=== PATIENT | male | born 1945 | race Caucasian/White ===

== ENCOUNTER 2018-07-24 09:32 | Inpatient (IN) ==
[2018-07-24 11:01] LABS: Basophils % 0.3 % (0.0-0.8); Hematocrit 42.8 VOL% (42.0-52.0); Hemoglobin 13.6 GM/DL (14.0-18.0); Immature Granulocytes % 0.6 %; Immature Granulocytes Absolute 0.08 #; Lymphocytes # 0.1 10*3/uL (1.4-4.0); Mean Corpuscular HGB Conc 31.8 GM/DL (32-36); Mean Corpuscular Hemoglobin 30 PG (27-34); Mean Corpuscular Volume 93.2 FL (87-102); Mean Platelet Volume 10.7 FL (9.6-12.0); Monocytes # 0.2 10*3/uL (0.11-0.8); Monocytes % 1.3 % (1.7-12.7); Neutrophils # 12.3 10*3/uL (1.4-7.4); Neutrophils % 96.8 % (38.7-73.9); Platelet Count 164 T/CUMM (130-400); Red Blood Count 4.59 MC/CUMM (3.8-5.5); Red Cell Distribution Width 13.6 % (9.3-17.3); White Blood Count 12.7 T/CUMM (4-12)
[2018-07-24 11:23] LABS: Band Neutrophils 11 % (0-10); Hypochromasia 1+; Platelet Estimate Adequate; Segmented Neutrophils 88 % (50-85); Total Cells Counted 100
[2018-07-24 11:32] LABS: Calcium 8.8 MG/DL (8.5-10.1); Osmolality,Calculated 282.5 MOS/KG (273-304); Potassium 4.3 MMOL/L (3.5-5.1)
[2018-07-24] MEDS: LACTATED RINGERS 1,000 ML IV SCH (11:35)
[2018-07-24] MEDS ORDERED: GENTAMICIN 80 MG/2 ML VIAL ONE (11:57)
[2018-07-24] MEDS ORDERED: ACETAMINOPHEN 325 MG TABLET PO PRN (12:33)
[2018-07-24] MEDS ORDERED: PROMETHAZINE 25 MG/1 ML VIAL IM PRN (12:33)
[2018-07-24] MEDS ORDERED: ONDANSETRON 4 MG/2 ML VIAL IV PRN (12:33)
[2018-07-24] MEDS ORDERED: PROPOFOL 200 MG/20 ML VIAL IV ONE (12:49)
[2018-07-24] MEDS ORDERED: fentaNYL 100 MCG/2 ML VIAL ONE (12:49)
[2018-07-24] MEDS ORDERED: ePHEDrine 50 MG/ML AMP ONE (12:49)
[2018-07-24 13:16] LABS: Apearance,Urine CLOUDY (Clear); Bilirubin,Urine Negative (Negative); Blood, Urine Small mg/dL (Negative); Glucose,Urine (UA) Negative (Negative); Ketones,Urine Negative (Negative); Nitrite,Urine Positive (Negative); Protein,Urine 30 MG/DL; RBC,Urine 5 /HPF (0-4); Triple Phosphate Crystal,Urine Occasional /HPF (Few); Urine Color Amber (Yellow); Urine Specific Gravity 1.015 (1.001-1.035); Urine Urobilinogen < 2.0 EU/DL (0.2-1.0); WBC,Urine <1 /HPF (0-6)
[2018-07-24] MEDS ORDERED: GENTAMICIN INJ 480 MG in SODIUM CHLORIDE 0.9% 100 ML IV PRN (14:55)
[2018-07-24] MEDS: SODIUM CHLORIDE 0.9% 1,000 ML IV SCH (15:22)
[2018-07-24] MEDS ORDERED: GENTAMICIN INJ 320 MG in SODIUM CHLORIDE 0.9% 100 ML IV ONE (16:00)
[2018-07-25 05:47] LABS: Basophils # 0.1 10*3/uL (0.0-0.2); Basophils % 0.4 % (0.0-0.8); Eosinophils % 0.1 % (0.00-10.9); Hemoglobin 11.8 GM/DL (14.0-18.0); Immature Granulocytes Absolute 0.17 #; Lymphocytes # 0.6 10*3/uL (1.4-4.0); Lymphocytes % 3.8 % (21.2-54.2); Mean Corpuscular HGB Conc 31.1 GM/DL (32-36); Mean Corpuscular Hemoglobin 29 PG (27-34); Mean Corpuscular Volume 93.6 FL (87-102); Mean Platelet Volume 12.1 FL (9.6-12.0); Monocytes # 1.4 10*3/uL (0.11-0.8); Monocytes % 8.6 % (1.7-12.7); Neutrophils # 14.4 10*3/uL (1.4-7.4); Neutrophils % 86.1 % (38.7-73.9); Platelet Count 122 T/CUMM (130-400); Red Blood Count 4.06 MC/CUMM (3.8-5.5); Red Cell Distribution Width 13.9 % (9.3-17.3); White Blood Count 16.7 T/CUMM (4-12)
[2018-07-25 06:10] LABS: Calcium 7.9 MG/DL (8.5-10.1); Potassium 4.1 MMOL/L (3.5-5.1)
[2018-07-25 06:23] LABS: Band Neutrophils 6 % (0-10); Hypochromasia 1+; Lymphocytes 6 % (20-55); Ovalocytes Slight; Platelet Estimate Normal; Segmented Neutrophils 86 % (50-85); Total Cells Counted 100
[2018-07-25] MEDS: SODIUM CHLORIDE 0.9% 1,000 ML IV SCH ×5 (07:38→20:45)
[2018-07-25] MEDS: amLODIPine 10 MG TABLET PO SCH (08:13)
[2018-07-25] MEDS: ASPIRIN EC 81 MG TABLET PO SCH (08:13)
[2018-07-25] MEDS ORDERED: LEVOFLOXACIN 500 MG TABLET PO SCH ×2 (09:00)
[2018-07-25] MEDS ORDERED: PRAVASTATIN 40 MG TABLET PO SCH (09:00)
[2018-07-25] MEDS ORDERED: ASPIRIN EC 81 MG TABLET PO SCH (09:00)
[2018-07-25] MEDS ORDERED: amLODIPine 10 MG TABLET PO SCH (09:00)
[2018-07-25] MEDS: ENOXAPARIN 40 MG/0.4 ML SYRINGE SUBCUT SCH (12:06)
[2018-07-25] MEDS: LACTATED RINGERS 1,000 ML IV SCH (12:06)
[2018-07-25] MEDS: SIMVASTATIN 20 MG TABLET PO SCH (20:44)
[2018-07-26 05:13] LABS: Basophils # 0.1 10*3/uL (0.0-0.2); Basophils % 0.3 % (0.0-0.8); Eosinophils # 0.1 10*3/uL (0.0-0.87); Eosinophils % 0.5 % (0.00-10.9); Hematocrit 38.3 VOL% (42.0-52.0); Hemoglobin 12.2 GM/DL (14.0-18.0); Immature Granulocytes Absolute 0.15 #; Lymphocytes # 0.5 10*3/uL (1.4-4.0); Lymphocytes % 3.5 % (21.2-54.2); Mean Corpuscular HGB Conc 31.9 GM/DL (32-36); Mean Corpuscular Hemoglobin 29 PG (27-34); Mean Corpuscular Volume 92.1 FL (87-102); Mean Platelet Volume 11.6 FL (9.6-12.0); Monocytes # 1.3 10*3/uL (0.11-0.8); Monocytes % 8.6 % (1.7-12.7); Neutrophils # 12.6 10*3/uL (1.4-7.4); Neutrophils % 86.1 % (38.7-73.9); Platelet Count 108 T/CUMM (130-400); Red Blood Count 4.16 MC/CUMM (3.8-5.5); Red Cell Distribution Width 13.3 % (9.3-17.3); White Blood Count 14.7 T/CUMM (4-12)
[2018-07-26 05:40] LABS: Calcium 8.2 MG/DL (8.5-10.1); Osmolality,Calculated 273.2 MOS/KG (273-304); Potassium 4.4 MMOL/L (3.5-5.1)
[2018-07-26 05:59] LABS: Hypochromasia 1+; Lymphocytes 5 % (20-55); Ovalocytes Slight; Platelet Estimate Decreased; Segmented Neutrophils 89 % (50-85); Total Cells Counted 100
[2018-07-26] MEDS: SODIUM CHLORIDE 0.9% 1,000 ML IV SCH (08:09)
[2018-07-26] MEDS: AMOXICILLIN 875 MG TABLET PO SCH ×2 (08:45→20:56)
[2018-07-26] MEDS: DOCUSATE SODIUM 100 MG CAPSULE PO SCH ×2 (08:45→20:56)
[2018-07-26] MEDS: ENOXAPARIN 40 MG/0.4 ML SYRINGE SUBCUT SCH ×2 (08:46→08:53)
[2018-07-26] MEDS: ASPIRIN EC 81 MG TABLET PO SCH (08:46)
[2018-07-26] MEDS: amLODIPine 10 MG TABLET PO SCH (08:46)
[2018-07-26] MEDS ORDERED: GENTAMICIN INJ 480 MG in SODIUM CHLORIDE 0.9% 100 ML IV ONE (09:00)
[2018-07-26] MEDS ORDERED: VANCOMYCIN INJ 1,500 MG in SODIUM CHLORIDE 0.9% 500 ML IV ONE (09:00)
[2018-07-26] MEDS ORDERED: FUROSEMIDE 40 MG/4 ML VIAL IV ONE (10:24)
[2018-07-26] MEDS: ALBUTEROL/IPRATROPIUM 3 ML NEB RESP TX SCH ×3 (11:17→20:59)
[2018-07-26 11:23] LABS: ABG Base Excess -2.1 MMOL/L (-2.5-2.5); ABG HCO3 22.6 MMOL/L (20-26); ABG Oxygen Saturation 94.7 % (95-100); ABG PCO2 35.5 MM HG (35-48); ABG PH 7.402 (7.35-7.45); ABG PO2 70.8 MM HG (80-95); ABG TCO2 19.2 MMOL/L (23-27)
[2018-07-26] MEDS: SIMVASTATIN 20 MG TABLET PO SCH (20:56)
[2018-07-27] MEDS: ALBUTEROL/IPRATROPIUM 3 ML NEB RESP TX SCH ×4 (02:30→11:15)
[2018-07-27 04:56] LABS: Basophils % 0.3 % (0.0-0.8); Eosinophils # 0.1 10*3/uL (0.0-0.87); Eosinophils % 0.4 % (0.00-10.9); Hematocrit 36.9 VOL% (42.0-52.0); Hemoglobin 11.8 GM/DL (14.0-18.0); Immature Granulocytes % 1.3 %; Immature Granulocytes Absolute 0.16 #; Lymphocytes # 0.7 10*3/uL (1.4-4.0); Lymphocytes % 5.5 % (21.2-54.2); Mean Corpuscular Hemoglobin 29 PG (27-34); Mean Corpuscular Volume 91.1 FL (87-102); Mean Platelet Volume 11.2 FL (9.6-12.0); Monocytes # 1.2 10*3/uL (0.11-0.8); Monocytes % 9.8 % (1.7-12.7); Neutrophils # 10.3 10*3/uL (1.4-7.4); Neutrophils % 82.7 % (38.7-73.9); Platelet Count 123 T/CUMM (130-400); Red Blood Count 4.05 MC/CUMM (3.8-5.5); Red Cell Distribution Width 13.2 % (9.3-17.3); White Blood Count 12.4 T/CUMM (4-12)
[2018-07-27 05:16] LABS: Calcium 8.1 MG/DL (8.5-10.1); Osmolality,Calculated 275.1 MOS/KG (273-304); Potassium 3.9 MMOL/L (3.5-5.1)
[2018-07-27 05:21] LABS: Hypochromasia Slight; Microcytosis Slight; Ovalocytes Slight; Platelet Estimate Adequate
[2018-07-27] MEDS: DOCUSATE SODIUM 100 MG CAPSULE PO SCH (08:02)
[2018-07-27] MEDS: ENOXAPARIN 40 MG/0.4 ML SYRINGE SUBCUT SCH (08:02)
[2018-07-27] MEDS: amLODIPine 10 MG TABLET PO SCH (08:02)
[2018-07-27] MEDS: ASPIRIN EC 81 MG TABLET PO SCH (08:02)
[2018-07-27] MEDS: AMOXICILLIN 875 MG TABLET PO SCH (08:02)
[2018-07-27 12:38] VITALS: BP 149/65
== END 2018-07-27 14:35 | disposition home or self-care (01) | DRG 697 ==
LOC: EDBD → EDUNIT# → N.ED 09:32 → N.5E 11:13 → EDSTATUS 12:15 → N.EDINP 14:35 → N.5E 14:37
PROVIDERS: ADMIT Surgery; ATTEND Surgery

== ENCOUNTER 2020-02-17 05:30 | Inpatient (IN) ==
[2020-02-12 12:21] LABS: Basophils # 0.1 10*3/uL (0.0-0.2); Basophils % 0.7 % (0.0-0.8); Eosinophils # 0.2 10*3/uL (0.0-0.87); Eosinophils % 2.4 % (0.00-10.9); Hematocrit 43.1 VOL% (42.0-52.0); Hemoglobin 14.1 GM/DL (14.0-18.0); Immature Granulocytes % 0.4 %; Immature Granulocytes Absolute 0.04 #; Lymphocytes # 1.9 10*3/uL (1.4-4.0); Lymphocytes % 18.6 % (21.2-54.2); Mean Corpuscular HGB Conc 32.7 GM/DL (32-36); Mean Corpuscular Volume 90.7 FL (87-102); Mean Platelet Volume 9.9 FL (9.6-12.0); Monocytes % 9.1 % (1.7-12.7); Neutrophils % 68.8 % (38.7-73.9); Platelet Count 206 T/CUMM (130-400); Red Blood Count 4.75 MC/CUMM (3.8-5.5); Red Cell Distribution Width 14.5 % (9.3-17.3)
[2020-02-12 12:29] LABS: PT Patient Result 11.2 SECS (9.8-11.9); Partial Thromboplastin Time 29.8 SECS (23.9-33.8)
[2020-02-12 12:43] LABS: Bilirubin,Total 1.1 MG/DL (0.2-1.0); Calcium 8.9 MG/DL (8.5-10.1); Osmolality,Calculated 283.3 MOS/KG (273-304); Total Protein 7.8 G/DL (6.4-8.3)
[2020-02-17] MEDS ORDERED: VANCOMYCIN 1,000 MG VIAL ONE (06:01)
[2020-02-17] MEDS ORDERED: LACTATED RINGERS 1,000 ML IV SCH (06:30)
[2020-02-17] MEDS ORDERED: ceFAZolin 2,000 MG in PREMIX 1 EACH IV ONE (06:30)
[2020-02-17] MEDS ORDERED: VANCOMYCIN INJ 1,000 MG in SODIUM CHLORIDE 0.9% 250 ML IV ONE (06:30)
[2020-02-17] MEDS ORDERED: ROPIVACAINE 0.5% 30 ML VIAL ONE (06:36)
[2020-02-17] MEDS ORDERED: DEXAMETHASONE 4 MG/1 ML VIAL ONE (06:36)
[2020-02-17] MEDS ORDERED: EPINEPHrine 1 MG/ML VIAL ONE (06:36)
[2020-02-17] MEDS ORDERED: ONDANSETRON 4 MG/2 ML VIAL IV PRN (06:46)
[2020-02-17] MEDS ORDERED: diphenhydrAMINE CAP 25 MG CAPSULE PO PRN (06:46)
[2020-02-17] MEDS ORDERED: MAGNESIUM HYDROXIDE SUSP 30 ML UDCUP PO PRN (06:46)
[2020-02-17] MEDS ORDERED: ZALEPLON 5 MG CAPSULE PO PRN (06:46)
[2020-02-17] MEDS ORDERED: MORPHINE 4 MG/1 ML VIAL IV PRN ×2 (06:46)
[2020-02-17] MEDS ORDERED: BACITRACIN OINT 0.9 GM PACK TOP ONE (06:55)
[2020-02-17] MEDS ORDERED: LIDOCAINE 2% 5 ML VIAL ONE (08:48)
[2020-02-17] MEDS ORDERED: HYDROCORTISONE 100 MG VIAL ONE (08:48)
[2020-02-17] MEDS ORDERED: MIDAZOLAM 2 MG/2 ML VIAL ONE (08:48)
[2020-02-17] MEDS ORDERED: TRANEXAMIC ACID 1,000 MG/10 ML VIAL ONE (08:48)
[2020-02-17] MEDS ORDERED: propofoL 200 MG/20 ML VIAL IV ONE (08:48)
[2020-02-17] MEDS ORDERED: fentaNYL 100 MCG/2 ML VIAL ONE (08:48)
[2020-02-17] MEDS ORDERED: BUPIVACAINE SPINAL 0.75% 2 ML AMP SPINAL ONE (08:49)
[2020-02-17] MEDS ORDERED: ACETAMINOPHEN 1,000 MG/100 ML VIAL IV ONE (08:49)
[2020-02-17] MEDS ORDERED: SODIUM CHLORIDE 0.9% 100 ML IV ONE (08:49)
[2020-02-17] MEDS ORDERED: SODIUM CHLORIDE 0.9% 250 ML IV ONE (08:49)
[2020-02-17] MEDS: KETOROLAC 15 MG/1 ML VIAL IV SCH ×2 (13:22→17:32)
[2020-02-17] MEDS: DOCUSATE SODIUM 100 MG CAPSULE PO SCH ×2 (13:23→21:23)
[2020-02-17] MEDS: LACTATED RINGERS 1,000 ML IV SCH ×2 (13:23→15:32)
[2020-02-18] MEDS: KETOROLAC 15 MG/1 ML VIAL IV SCH (00:06)
[2020-02-18] MEDS: FONDAPARINUX 2.5 MG/0.5 ML SYRINGE SUBCUT SCH (00:06)
[2020-02-18 04:19] LABS: Basophils % 0.2 % (0.0-0.8); Eosinophils % 0.1 % (0.00-10.9); Hematocrit 36.8 VOL% (42.0-52.0); Hemoglobin 12.3 GM/DL (14.0-18.0); Immature Granulocytes % 0.4 %; Immature Granulocytes Absolute 0.06 #; Lymphocytes # 1.2 10*3/uL (1.4-4.0); Lymphocytes % 9.1 % (21.2-54.2); Mean Corpuscular HGB Conc 33.4 GM/DL (32-36); Mean Corpuscular Volume 90.6 FL (87-102); Monocytes % 13.7 % (1.7-12.7); Neutrophils % 76.5 % (38.7-73.9); Platelet Count 164 T/CUMM (130-400); Red Blood Count 4.06 MC/CUMM (3.8-5.5); Red Cell Distribution Width 14.3 % (9.3-17.3); White Blood Count 13.6 T/CUMM (4-12)
[2020-02-18 04:38] LABS: Calcium 8.2 MG/DL (8.5-10.1); Osmolality,Calculated 280.7 MOS/KG (273-304)
[2020-02-18] MEDS ORDERED: KETOROLAC 15 MG/1 ML VIAL IV SCH (05:30)
[2020-02-18] MEDS: ENALAPRIL 20 MG TABLET PO SCH (10:17)
[2020-02-18] MEDS: SIMVASTATIN 20 MG TABLET PO SCH (10:18)
[2020-02-18] MEDS: amLODIPine 5 MG TABLET PO SCH (10:19)
[2020-02-18] MEDS: DOCUSATE SODIUM 100 MG CAPSULE PO SCH ×2 (10:19→21:34)
[2020-02-18] MEDS: CELECOXIB 200 MG CAPSULE PO SCH (18:11)
[2020-02-19] MEDS: FONDAPARINUX 2.5 MG/0.5 ML SYRINGE SUBCUT SCH (00:56)
[2020-02-19 05:45] LABS: Basophils # 0.1 10*3/uL (0.0-0.2); Basophils % 0.4 % (0.0-0.8); Eosinophils # 0.1 10*3/uL (0.0-0.87); Eosinophils % 0.5 % (0.00-10.9); Hematocrit 34.5 VOL% (42.0-52.0); Hemoglobin 11.7 GM/DL (14.0-18.0); Immature Granulocytes % 0.6 %; Immature Granulocytes Absolute 0.08 #; Lymphocytes # 1.1 10*3/uL (1.4-4.0); Lymphocytes % 8.4 % (21.2-54.2); Mean Corpuscular HGB Conc 33.9 GM/DL (32-36); Mean Corpuscular Volume 89.6 FL (87-102); Mean Platelet Volume 10.7 FL (9.6-12.0); Monocytes % 14.1 % (1.7-12.7); Platelet Count 146 T/CUMM (130-400); Red Blood Count 3.85 MC/CUMM (3.8-5.5); Red Cell Distribution Width 14.5 % (9.3-17.3); White Blood Count 13.3 T/CUMM (4-12)
[2020-02-19] MEDS: SIMVASTATIN 20 MG TABLET PO SCH (10:00)
[2020-02-19] MEDS: CELECOXIB 200 MG CAPSULE PO SCH (10:00)
[2020-02-19] MEDS: ENALAPRIL 20 MG TABLET PO SCH (10:00)
[2020-02-19] MEDS: amLODIPine 5 MG TABLET PO SCH (10:01)
[2020-02-19] MEDS: DOCUSATE SODIUM 100 MG CAPSULE PO SCH (10:10)
[2020-02-19 11:26] VITALS: BP 122/77
== END 2020-02-19 13:31 | disposition home health service (06) | DRG 470 ==
LOC: N.OR 05:30 → N.SDSINP 05:32 → N.3E 09:17
PROVIDERS: ADMIT Orthopaedic Surgery; ATTEND Orthopaedic Surgery